=== PATIENT | female | born 1985 | race Caucasian/White ===

== ENCOUNTER 2017-01-18 22:29 | Emergency (ER) | payer SELFPAY ==
[~2017-01-18 22:29] MED LIST: TRAMADOL HCL50 MG PO
[2017-01-18] MEDS ORDERED: NO HOME MEDICATION (22:53)
== END 2017-01-19 00:10 ==
LOC: EDMED 22:29
PROC: 2W3MXYZ Immobilization of Left Lower Extremity using Other Device (ICD-10-PCS; principal; 2017-01-19)
DX: S93.402A Sprain of unspecified ligament of left ankle, initial encounter (principal); S93.602A Unspecified sprain of left foot, initial encounter; F17.210 Nicotine dependence, cigarettes, uncomplicated; X50.1XXA Overexertion from prolonged static or awkward postures, initial encounter; Y92.019 Unspecified place in single-family (private) house as the place of occurrence of the external cause